=== PATIENT | male | born 1995 | race Caucasian/White ===

== ENCOUNTER 2016-07-03 02:15 | Emergency (ER) | payer SELFPAY ==
[~2016-07-03] VITALS: Ht 162.6 cm; Wt 88.0 kg
[2016-07-03 02:20] VITALS: Ht 162.6 cm; Wt 88.0 kg
== END 2016-07-03 03:51 | disposition left against medical advice (07) ==
LOC: E/R 02:15
DX: Z53.21 Procedure and treatment not carried out due to patient leaving prior to being seen by health care provider (principal)

== ENCOUNTER 2017-05-18 12:31 | Day surgery (SDC) | END 2017-05-18 18:03 | disposition home or self-care (01) ==

== ENCOUNTER 2017-05-20 15:29 | Emergency (ER) | END 2017-05-20 19:50 | disposition home or self-care (01) ==